=== PATIENT | male | born 1935 | race Caucasian/White ===

== ENCOUNTER → 2017-10-30 | Outpatient (CLI) | payer MEDICARE ==
--- NOTE | 2017-10-31 21:07 | US ---
EXAMINATION TYPE: US carotid duplex BILAT DATE OF EXAM: 10/30/2017 COMPARISON: Prior carotid ultrasound March 03, 2014 CLINICAL HISTORY: I65.9Occlusion/stenosis of unspe cified precerebral. HTN, pt has no complaints at this time EXAM MEASUREMENTS: RIGHT: Peak Systolic Velocity (PSV) cm/sec ----- Right CCA: 71.1 ----- Right ICA: 112.2 ----- Right ECA: 143.2 ICA/CCA ratio: 1.6 RIGHT: End Diastole cm/sec ----- Right CCA: 18.3 ----- Right ICA: 15.0 ----- Right ECA: 23.6 LEFT: Peak Systolic Velocity (PSV) cm/sec ----- Left CCA: 93.0 ----- Left ICA: 93.2 ----- Left ECA: 133.5 ICA/CCA ratio: 1.0 LEFT: End Diastole cm/sec ----- Left CCA: 17.2 ----- Left ICA: 29.3 ----- Left ECA: 17.1 VERTEBRALS (direction of flow): Right Vertebral: Antegrade Left Vertebral: Antegrade Rhythm: Normal Slightly elevated velocities bilateral ECA's, otherwise no significant stenosis seen Munoz scale images redemonstrate mild peripheral hyperechoic plaque at bilateral carotid bulbs. Veloci ty measurements and ratios in visualized portion of both internal carotid arteries is within normal l imits. IMPRESSION: No hemodynamic significant stenosis is seen in either internal carotid artery.
== END | disposition home or self-care (01) ==
LOC: RADUSWWP 15:18
PROVIDERS: ATTEND Internal Medicine Interventional Cardiology
DX: R42 Dizziness and giddiness (principal); I25.10 Atherosclerotic heart disease of native coronary artery without angina pectoris
CPT/HCPCS: 93880

== ENCOUNTER → 2018-05-14 | Outpatient (CLI) | payer MEDICARE ==
--- NOTE | 2018-05-14 16:54 | CT ---
EXAMINATION TYPE: CT brain wo con DATE OF EXAM: 05/14/2018 COMPARISON: None HISTORY: Left foot swelling and dizziness CT DLP: 1144.7 mGycm Automated exposure control for dose reduction was used. FINDINGS: There is cerebral cortical atrophy. There is no mass effect nor midline shift. There is no sign of in tracranial hemorrhage. The calvarium is intact. IMPRESSION: NEGATIVE CT SCAN OF THE BRAIN. CEREBRAL ATROPHY.
--- NOTE | 2018-05-14 17:26 | US ---
EXAMINATION TYPE: US venous doppler duplex LE LT DATE OF EXAM: 05/14/2018 5:02 PM COMPARISON: NONE CLINICAL HISTORY: R60.0 Edema / R13.10 Dyshagia. h/o left leg DVT 2 years ago, swelling now SIDE PERFORMED: Left TECHNIQUE: The lower extremity deep venous system is examined utilizing real time linear array sonog nicole with graded compression, doppler sonography and color-flow sonography. VESSELS IMAGED: External Iliac Vein (EIV) Common Femoral Vein Deep Femoral Vein Greater Saphenous Vein * Femoral Vein Popliteal Vein Small Saphenous Vein * Proximal Calf Veins (* superficial vessels) Left Leg: Appears negative for DVT IMPRESSION: No evidence of deep venous thrombosis in the left leg.
== END | disposition home or self-care (01) ==
LOC: RADCTMAIN 16:01
PROVIDERS: ATTEND Family Medicine
DX: G31.9 Degenerative disease of nervous system, unspecified (principal); R60.0 Localized edema
CPT/HCPCS: 70450

== ENCOUNTER 2018-07-26 07:56 | Day surgery (SDC) | payer MEDICARE ==
[2018-07-23 12:38] VITALS: BMI 25.7
[~2018-07-26 07:56] MED LIST: ALPRAZolam 0.25 MG TAB PO PRN; ALPRAZolam 0.5 MG TAB PO PRN; ASPIRIN 325 MG TAB PO ONE; ATORVASTATIN 80 MG TAB PO ONE; NITROGLYCERIN SL TABS 0.4 MG TAB SUBLINGUAL PRN; SODIUM CHLORIDE 0.9% 1,000 ML in EMPTY BAG 1 BAG IV ONE
[2018-07-26] MEDS ORDERED: SODIUM CHLORIDE 0.9% 1,000 ML IV ONE (08:30)
[2018-07-26 08:41] VITALS: RESP 16; TEMP 97.9
[2018-07-26 08:47] LABS: Glucose,Whole Blood 136 mg/dL (75-99)
[2018-07-26] MEDS ORDERED: LIDOCAINE 1% INJ 10MG/ML (20 ML MDV) ONE (09:02)
[2018-07-26] MEDS ORDERED: VERAPAMIL 2.5 MG/ML 2 ML AMP ONE (09:02)
[2018-07-26] MEDS ORDERED: HEPARIN SODIUM 1,000 UN/ML (10ML VL) ONE (09:02)
[2018-07-26] MEDS ORDERED: MIDAZOLAM 2 MG/2 ML VIAL ONE (09:02)
[2018-07-26] MEDS: MIDAZOLAM 2 MG/2 ML VIAL IVP ONE ×2 (10:40→10:52)
[2018-07-26] MEDS ORDERED: LIDOCAINE 1% INJ 10MG/ML (20 ML MDV) SQ ONE (10:40)
[2018-07-26] MEDS: VERAPAMIL SYRINGE (5 MG/10 ML) INTRAARTER ONE ×2 (10:42→11:01)
[2018-07-26] MEDS ORDERED: HEPARIN SODIUM 1,000 UN/ML (10ML VL) IV ONE (10:43)
[2018-07-26] MEDS ORDERED: IOPAMIDOL-370 50ML BTL INJ ONE (11:01)
[2018-07-26] MEDS ORDERED: IOPAMIDOL-370 125ML BTL INJ ONE (11:01)
[2018-07-26] MEDS ORDERED: RX INFO: IV CONTRAST WAS GIVEN 1 EACH MISC MISCELLANE PRN (11:17)
[2018-07-26] MEDS ORDERED: SODIUM CHLORIDE 0.9% 1,000 ML IV SCH (11:30)
--- NOTE | 2018-07-26 11:39 | LTR ---
DATE OF SERVICE: July 26, 2018. RE: Jl Mesa Dear Gilberto; Mr. Jl Mesa underwent a heart catheterization today and that revealed extremely calcified right and left coronary system with severe triple-vessel coronary artery disease. I am going to consult surgeon for the evaluation of coronary artery bypass grafting. I want to thank you for allowing me to participate in his care and please do not hesitate to call if you have any question or concern. Sincerely, MD ROSELIA Mason / GRACEN: [id number] /
--- NOTE | 2018-07-26 12:00 | CC ---
CARDIAC CATHETERIZATION REPORT DATE OF SERVICE: 07/26/2018 PERFORMING PHYSICIAN: Winston Gaona MD, [employer] T[employer]. PROCEDURE PERFORMED: 1. Selective right and left coronary angiogram. 2. Left heart catheterization. 3. Left ventriculography. INDICATION: This is a pleasant 83-year-old gentleman who sees Dr. Christopher as an outpatient with known history of hypertension and dyslipidemia who was experiencing recently atypical chest discomfort. He underwent a myocardial perfusion imaging stress test and that revealed lateral ischemia. Also, he did undergo an event monitor which showed 1 episode of sinus pause of 2 seconds. Giving all that, I did recommend proceeding with a heart catheterization to rule out any severe underlying CAD. APPROACH: Right radial artery. COMPLICATION: None. LEVEL OF SEDATION: Moderate with sedation length of 25 minutes. PROCEDURE DESCRIPTION: After obtaining an informed consent, the patient was brought to the cardiac lab engineer. The right radial artery was cannulated using micropuncture technique and a micropuncture wire passed easily, then I placed a 5-Ku[place]i sheath in the right radial artery. I gave the patient 2 mg of verapamil IA and 9000 units of heparin IV. Selective right and left coronary angiogram was performed using JR4 and JL3.5 catheters. Left heart catheterization and left ventriculography were performed using 5- [place]i pigtail catheter. The procedure was completed without any complication. SELECTIVE CORONARY ANGIOGRAM: 1. The right coronary artery is a large caliber vessel and it is a dominant vessel. The proximal RCA has mild disease only. The mid RCA has a lesion to be in the range of 70%. Was best seen on the AMAYA cranial view. The RCA distally appeared to have mild disease only and bifurcates into PDA and PLV branches. The PDA branch of the RCA has severe disease in the midportion, but the artery is a small caliber vessel. There. The PLV branch of the RCA has another lesion appeared to be in the range of 90% as well. The RCA overall is extremely calcified. 2. The left main is a large caliber vessel. The left main is angiographically normal. It bifurcates into the circumflex and left anterior descending artery. 3. The left circumflex is a medium caliber vessel. It is a nondominant vessel. The proximal circumflex has mild disease only and gives rise into a medium-sized OM branch which is subtotally occluded. The left circumflex continues after that as a medium caliber vessel in the AV groove. 4. The LAD, the LAD is an extremely calcified vessel. The proximal LAD has mild disease only. The mid LAD by the bifurcation of the diagonal branch appeared to have a lesion in the range of 70%. The LAD in the mid to distal portion has another long tubular lesion in the range of 70%. The very distal LAD just before the apex has another lesion appeared to be in the range of 90%. HEMODYNAMICS: The left ventricular end-diastolic pressure was 16 mmHg without significant gradient across the aortic valve. Left ventriculography was performed in the AMAYA projection and using a power injection. Left ventricular systolic function appeared to be mildly impaired with the EF between 45% to 50% CONCLUSION: 1. Extremely calcified right and left coronary systems. 2. Dominant right coronary artery. 3. Severe triple-vessel coronary artery disease. POSTPROCEDURE MANAGEMENT: 1. Given the extremely calcified vessels and the anatomy which including the triple- vessel, I did recommend proceeding with coronary artery bypass grafting. 2. I am going to consult surgeon to evaluate the patient for that. 3. Medical treatment and follow up with the patient. MMODL / IJN: [id number] /
--- NOTE | 2018-07-26 14:50 | US ---
EXAMINATION TYPE: US carotid duplex BILAT DATE OF EXAM: 07/26/2018 COMPARISON: US CLINICAL HISTORY: PreOp Cardiac Surgery. Pre-Op CABG EXAM MEASUREMENTS: RIGHT: Peak Systolic Velocity (PSV) cm/sec ----- Right CCA: 72.2 ----- Right ICA: 103.1 ----- Right ECA: 127.7 ICA/CCA ratio: 1.4 RIGHT: End Diastole cm/sec ----- Right CCA: 15.0 ----- Right ICA: 26.0 ----- Right ECA: 0.0 LEFT: Peak Systolic Velocity (PSV) cm/sec ----- Left CCA: 85.5 ----- Left ICA: 97.6 ----- Left ECA: 111.9 ICA/CCA ratio: 1.1 LEFT: End Diastole cm/sec ----- Left CCA: 12.8 ----- Left ICA: 28.2 ----- Left ECA: 8.4 VERTEBRALS (direction of flow): Right Vertebral: Antegrade Left Vertebral: Antegrade Rhythm: Normal No significant stenosis seen IMPRESSION: No hemodynamically significant stenosis appreciated. Criteria for Assigning % of Stenosis / Diameter reduction (Estimation based on the indirect measurements of the internal carotid artery velocities (ICA PSV). 1. Normal (no stenosis)=ICA PSV < 125 cm/s: ratio < 2.0: ICA EDV<40 cm/s. 2. Less than 50% stenosis=ICA PSV < 125 cm/s: ratio < 2.0: ICA EDV<40 cm/s. 3. 50 to 69% stenosis=ICA PSV of 125 to 230 cm/s: ration 2.0 ? 4.0: ICA EDV 40-100 cm/s. 4. Greater than 70% stenosis to near occlusion= ICA PSV > 230 cm/s: ratio > 4.0: ICA EDV > 100 cm/s. 5. Near occlusion= ICA PSV velocities may be low or undetectable: variable ratio and ICA EDV. 6. Total occlusion=unable to detect flow.
--- NOTE | 2018-07-26 15:02 | XR ---
EXAMINATION TYPE: XR chest 2V DATE OF EXAM: 07/26/2018 COMPARISON: NONE HISTORY: Shortness of breath TECHNIQUE: Frontal and lateral views of the chest are obtained. FINDINGS: Scattered senescent parenchymal changes noted. Hyperinflation compatible with COPD. No evidence for infiltrate. No evidence for atelectasis. Heart size is stable. Mediastinal structures are stable and grossly unremarkable. No evidence for hilar prominence. Degenerative changes dorsal spine. IMPRESSION: 1. No evidence for acute pulmonary disease.
[2018-07-26 16:22] LABS: Appearance,Urine Clear (Clear); Bilirubin,Urine Negative (Negative); Blood,Urine Negative (Negative); Color,Urine Light Yellow; Glucose,Urine (UA) Negative (Negative); Ketones,Urine Negative (Negative); Leukocyte Esterase,Urine Negative (Negative); Nitrite,Urine Negative (Negative); Protein,Urine Negative (Negative); Specific Gravity,Urine 1.014 (1.001-1.035); Urobilinogen,Urine <2.0 mg/dL (<2.0)
[2018-07-26 16:33] LABS: Basophils % (A) 0 %; Eosinophils # (A) 0.1 k/uL (0-0.7); Eosinophils % (A) 2 %; HCT 38.8 % (39.0-53.0); HGB 12.6 gm/dL (13.0-17.5); Lymphocytes # (A) 1.7 k/uL (1.0-4.8); Lymphocytes % (A) 32 %; MCH 30.4 pg (25.0-35.0); MCHC 32.6 g/dL (31.0-37.0); MCV 93.1 fL (80.0-100.0); Mean Platelet Volume 8.1; Monocytes # (A) 0.4 k/uL (0-1.0); Monocytes % (A) 8 %; Neutrophils # (A) 2.9 k/uL (1.3-7.7); Neutrophils % (A) 55 %; Platelet Count 156 k/uL (150-450); RBC 4.16 m/uL (4.30-5.90); RDW 13.8 % (11.5-15.5); WBC 5.2 k/uL (3.8-10.6)
[2018-07-26 16:37] LABS: INR 1.2 (<1.2); Prothrombin Time 11.8 sec (9.0-12.0)
[2018-07-26 16:43] LABS: ALT 51 U/L (21-72); AST 46 U/L (17-59); Albumin 3.7 g/dL (3.5-5.0); Alkaline Phosphatase 72 U/L (38-126); Anion Gap 8 mmol/L; Blood Urea Nitrogen 19 mg/dL (9-20); Calcium 9.3 mg/dL (8.4-10.2); Carbon Dioxide 27 mmol/L (22-30); Chloride 103 mmol/L (98-107); Cholesterol 102 mg/dL (<200); Glucose 130 mg/dL (74-99); HDL Cholesterol 52 mg/dL (40-60); LDL Cholesterol,Calculated 33 mg/dL (0-99); Magnesium 1.8 mg/dL (1.6-2.3); Potassium 4.1 mmol/L (3.5-5.1); Sodium 138 mmol/L (137-145); Total Bilirubin 0.6 mg/dL (0.2-1.3); Total Protein 6.6 g/dL (6.3-8.2); Triglycerides 84 mg/dL (<150)
[2018-07-26 16:55] VITALS: BP 115/68; PULSE 64
--- NOTE | 2018-07-26 18:44 | P.GSCN ---
History of Present Illness Consult date: 07/26/18 Reason for Consult: Positive stress test, symptomatic multivessel coronary artery disease. Requesting physician: Winston Gaona History of present illness: This is an 83-year-old gentleman who is followed by Dr. Gilberto Taylor on an outpatient basis. His past medical history significant for hypertension, diabetes mellitus type 2, hyperlipidemia, diverticulosis and a family history of early onset coronary artery disease with his father being diagnosed with a myocardial infarction at age 55. Recently, the patient has had complaints of swelling to his left foot, ankle and leg, and he has had complaints of pain to his bilateral calf areas when sleeping and occasional dizziness when ambulating. He denies any complaints of chest pain, nausea, vomiting, fever, chills, shortness of breath. Due to his complaints of dizziness he underwent a event monitor through his primary care office which showed normal sinus rhythm with 2 episodes of second degree type II AV block with heart rate in the 60s. For further workup the patient underwent a stress test which showed distal lateral wall ischemia. He was subsequently evaluated by Dr. Gaona from [facility] for further cardiology workup. Today after Obtaining consent he underwent an elective heart catheterization which demonstrated a 70% stenosis to his proximal left anterior descending coronary artery, and 80% stenosis to his mid left anterior descending coronary artery, a totally occluded circumflex coronary artery, and a 70% stenosis to his right coronary artery. Also during heart catheterization the left ventriculogram was completed which demonstrated a left ventricular systolic function to be mildly impaired with an ejection fraction between 45 and 50%. Due to the patient's abnormal stress test and cardiac catheterization results a consult was placed to Dr. jarred Mckeon from cardiothoracic surgery for recommendations on myocardial vascularization surgery. Review of Systems A 14 point review of systems was completed as negative except as mentioned in HPI. Past Medical History Past Medical History: Diabetes Mellitus, Deep Vein Thrombosis (DVT), Eye Disorder (History of cataracts), Hyperlipidemia, Hypertension Additional Past Medical History / Comment(s): HX OF POLYPS, diverticulosis. History of Any Multi-Drug Resistant Organisms: None Reported Past Surgical History: Appendectomy Additional Past Surgical History / Comment(s): COLONOSCOPY, JUAN DAVID CATARACT SX Past Anesthesia/Blood Transfusion Reactions: No Reported Reaction Past Psychological History: No Psychological Hx Reported Smoking Status: Former smoker (Quit over 30 years ago.) Past Alcohol Use History: None Reported Past Drug Use History: None Reported - Past Family History Mother Family Medical History: No Reported History Additional Family Medical History / Comment(s): The patient reports his mother from old age at age 96. Father Family Medical History: Myocardial Infarction (DE) Additional Family Medical History / Comment(s): His father was diagnosed with a myocardial infarction at age 55, he reports he had 6 subsequent myocardial infarctions and at age 82. Daughter(s) Family Medical History: Cancer Additional Family Medical History / Comment(s): His daughter just in May of 2018 from breast cancer. Medications and Allergies Home Medications Medication Instructions Recorded Confirmed Type Losartan/Hydrochlorothiazide 1 tab PO DAILY 05/22/16 07/26/18 History [Hyzaar 100-25 Tablet] Pioglitazone [Actos] 15 mg PO DAILY 05/22/16 07/26/18 History Aspirin [Adult Low Dose Aspirin EC] 81 mg PO DAILY 07/23/18 07/26/18 History Atorvastatin [Lipitor] 40 mg PO DAILY 07/23/18 07/26/18 History Cyanocobalamin (Vitamin B-12) 1,000 mcg PO DAILY 07/23/18 07/26/18 History [Vitamin B-12] Ferrous Sulfate [Feosol] 325 mg PO DAILY 07/23/18 07/26/18 History Thiamine [Vitamin B-1] 100 mg PO DAILY 07/23/18 07/26/18 History Allergies Allergy/AdvReac Type Severity Reaction Status Date / Time No Known Allergies Allergy Verified 07/23/18 12:33 Surgical - Exam Vital Signs Temp Pulse Resp BP Pulse Ox 97.9 F 71 16 141/65 95 07/26/18 08:35 07/26/18 08:35 07/26/18 08:35 07/26/18 08:35 07/26/18 08:35 - General well developed, well nourished, no distress, no pain, obese - ENT normal pinna, normal nares, normal mucosa, no hearing loss, no congestion - Neck Neck is supple, no lymphadenopathy. no masses, no bruits, trachea midline, no venous distension - Respiratory Lung sounds are essentially clear throughout. Respirations are symmetrical and nonlabored. Oxygen saturation are 95% on room air. - Cardiovascular Regular rhythm and rate. S1 and S2 present, negative for S3, gallop or murmur. +1 edema to his left ankle and foot. Bedside telemetry showing normal sinus rhythm heart rate 64. - Abdomen Abdomen is soft, nontender and nondistended. Active bowel sounds to all 4 abdominal quadrants. No guarding or rigidity. No organomegaly. - Genitourinary Deferred - Rectum Deferred - Integumentary no rash, no growths, no abnormal pigmentation - Neurologic normal coordination, normal sensation - Musculoskeletal normal gait, normal posture - Psychiatric oriented to time, oriented to person, oriented to place, speech is normal, memory intact Results - Labs 07/26/18 16:22 07/26/18 16:22 Abnormal Lab Results - Last 24 Hours (Table) 07/26/18 Range/Units 08:28 POC Glucose (mg/dL) 136 H (75-99) mg/dL - Imaging Comments: Heart catheterization results reviewed. Assessment and Plan (1) Hypertension Status: Acute Code(s): I10 - ESSENTIAL (PRIMARY) HYPERTENSION SNOMED Code(s) : 98237508 (2) Hyperlipidemia Status: Acute Code(s): E78.5 - HYPERLIPIDEMIA, UNSPECIFIED SNOMED Code(s): 45223224 (3) Diabetes mellitus type 2 in obese Status: Acute Code(s): E11.69 - TYPE 2 DIABETES MELLITUS WITH OTHER SPECIFIED COMPLICATION; E66.9 - OBESITY, UNSPECIFIED SNOMED Code(s): 18103081 (4) Coronary artery disease Status: Acute Code(s): I25.10 - ATHSCL HEART DISEASE OF [place] CORONARY ARTERY W/O ANG PCTRS SNOMED Code(s): 62016517 (5) Positive cardiac stress test Status: Acute Code(s): R94.39 - ABNORMAL RESULT OF OTHER CARDIOVASCULAR FUNCTION STUDY SNOMED Code(s): 405652285 (6) Family history of coronary artery disease in father Status: Acute Code(s): Z82.49 - FAMILY HX OF ISCHEM HEART DIS AND OTH DIS OF THE CIRC SYS SNOMED Code(s): 837983172 Plan: The patient was seen and examined. His chart and diagnostics were reviewed. Skin is was discussed with Dr. Mckeon. Dr. Mckeon has seen and examined the patient. Preoperative testing and preoperative teaching initiated. A 5 m walk test has been completed time 1:4.92 seconds,Time 2: 4.53 seconds, time 3:3.96 seconds. Continue to optimize with medical therapy, continue aspirin, statin. Medical management per primary care service. Cardiology management per Dr. Gaona 's recommendations. Dr. Mckeon discussed at length with the patient and his family present at his bedside regarding his diffuse coronary artery disease. Due to the patient's diffuse coronary artery disease it was decided between Dr. Mckeon and Dr. Gaona that the patient would most likely more benefit from a PCI procedure. The patient will follow-up with Dr. Gaona on an outpatient basis. Thank you Dr. Gaona for this consult and we look forward to working with you in the care of your patient. Time with Patient: Greater than 30
[2018-07-27 05:15] LABS: Hemoglobin A1C 6.5 % (4.0-6.0)
--- NOTE | 2018-07-27 10:56 | ECHOF ---
Referral Reason:Assess LV function, pre op Cardiac surgery MEASUREMENTS -------- HEIGHT: 182.9 cm WEIGHT: 89.8 kg BP: RVIDd: 3.1 cm (< 3.3) IVSd: 1.2 cm (0.6 - 1.1) LVIDd: 5.5 cm (3.9 - 5.3) LVPWd: 1.1 cm (0.6 - 1.1) IVSs: 1.4 cm LVIDs: 4.0 cm LVPWs: 1.4 cm LA Diam: 3.8 cm (2.7 - 3.8) LAESV Index (A-L): 31.65 ml/m Ao Diam: 3.8 cm (2.0 - 3.7) AV Cusp: 1.5 cm (1.5 - 2.6) MV EXCURSION: 11.800 mm (> 18.000) MV EF SLOPE: 99 mm/s (70 - 150) EPSS: 0.5 cm MV E Jamari: 1.00 m/s MV DecT: 217 ms MV A Jamari: 0.66 m/s MV E/A Ratio: 1.50 AV maxP.28 mmHg AV meanP.70 mmHg AR PHT: 1197 ms RAP: 5.00 mmHg RVSP: 29.68 mmHg FINDINGS -------- Sinus rhythm. This was a technically good study. The left ventricular size is normal. There is borderline concentric left ventricular hypertrophy. Overall left ventricular systolic function is normal with, an EF between 55 - 60 %. The right ventricle is normal in size. LA is midly dilated 29-33ml/m2. The right atrium is normal in size. There is mild aortic valve sclerosis. Trace to mild aortic regurgitation. Peak/mean gradient acro ss the Aortic Valve is 11.28mmHg / 5.70mmHg. There is trace mitral regurgitation. Mild tricuspid regurgitation present. Right ventricular systolic pressure is normal at < 35 mmHg. There is no pulmonic regurgitation present. The aortic root is dilated measuring 3.8cm. Normal inferior vena cava with normal inspiratory collapse consistent with estimated right atrial pre ssure of 5 mmHg. CONCLUSIONS -------- 1. Sinus rhythm. 2. This was a technically good study. 3. The left ventricular size is normal. 4. There is borderline concentric left ventricular hypertrophy. 5. Overall left ventricular systolic function is normal with, an EF between 55 - 60 %. 6. The right ventricle is normal in size. 7. LA is midly dilated 29-33ml/m2. 8. The right atrium is normal in size. 9. There is mild aortic valve sclerosis. 10. Trace to mild aortic regurgitation. 11. Peak/mean gradient across the Aortic Valve is 11.28mmHg / 5.70mmHg. 12. There is trace mitral regurgitation. 13. Mild tricuspid regurgitation present. 14. Right ventricular systolic pressure is normal at < 35 mmHg. 15. There is no pulmonic regurgitation present. 16. The aortic root is dilated measuring 3.8cm. 17. Normal inferior vena cava with normal inspiratory collapse consistent with estimated right atrial pressure of 5 mmHg. [employer] TECHNICIAN: Mignon Bosch RDCS
[2018-07-27 17:09] LABS: Hepatitis A Antibody IgM Non-Reactive (Non-Reactive); Hepatitis B Core IgM Non-Reactive (Non-Reactive)
--- NOTE | 2018-08-04 15:02 | P.ARTDOP ---
Arterial Doppler LOWER EXTREMITY ARTERIAL DOPPLER: DATE OF SERVICE: 07/26/2018 Reason for study: Preop CABG. Doppler waveforms: Multiphasic bilaterally throughout. Pulse volume recording: []. Pressure gradients: None. Ankle-brachial indices: Greater than 1 bilaterally. Toe pressures: [] on the right, [] on the left Impression: Normal study.
--- NOTE | 2018-08-04 15:04 | P.VSCSTY ---
Greater Saphenous Vein Mapping This is bilateral lower extremity greater saphenous vein mapping. Date of service 07/26/2018 Vein quality and ultrasound appearance no intraluminal thrombus or wall changes are seen. Vein size groin right 5.8 x 5.7 groin left 7.0 x 7.8 High thigh right 2.3 x 2.3 high thigh left 4.1 x 4.2 Mid thigh right 2.4 x 2.3 mid thigh left 3.5 x 4.1 Above-knee right 2.6 x 2.8 above- knee left 4.3 x 4.8 Below knee right 2.4 x 3.0 below-knee left 3.8 x 4.0 Mid calf right 2.8 x 3.2 mid calf left 2.5 x 2.1 Ankle right 3.2 x 4.1 ankle left 3.7 x 4.1 Impression usable bilateral greater saphenous vein.
== END 2018-07-26 18:37 | disposition home or self-care (01) ==
LOC: CATHCVL 07:56
PROVIDERS: ATTEND Internal Medicine Interventional Cardiology
DX: I25.110 Atherosclerotic heart disease of native coronary artery with unstable angina pectoris (principal); I25.84 Coronary atherosclerosis due to calcified coronary lesion; I25.82 Chronic total occlusion of coronary artery; I10 Essential (primary) hypertension; I08.3 Combined rheumatic disorders of mitral, aortic and tricuspid valves; Z01.810 Encounter for preprocedural cardiovascular examination; Z87.891 Personal history of nicotine dependence; E78.5 Hyperlipidemia, unspecified; E11.9 Type 2 diabetes mellitus without complications; Z86.718 Personal history of other venous thrombosis and embolism; Z82.49 Family history of ischemic heart disease and other diseases of the circulatory system; Z79.84 Long term (current) use of oral hypoglycemic drugs; Z79.82 Long term (current) use of aspirin; Z79.899 Other long term (current) drug therapy
CPT/HCPCS: 94150; 93306; 93458; 80061; 80053; 80074; 84443; 83735; 85025; 85610; 85730; 81003; 87086; 83036; 71046; 93970; 93922; 93880; C1769; C1894; J2250; J2001; J1644; Q9967 ×2

== ENCOUNTER → 2018-08-28 | Outpatient (CLI) | payer MEDICARE | END | disposition home or self-care (01) | LOC: RADXRMAIN 15:16 | PROVIDERS: ATTEND Internal Medicine Interventional Cardiology | DX: Z53.9 Procedure and treatment not carried out, unspecified reason (principal) | CPT/HCPCS: 80051; 82565; 84520; 85027 ==

== ENCOUNTER 2018-09-08 10:17 | Day surgery (SDC) | payer MEDICARE ==
[2018-08-28 23:08] LABS: HCT 41.9 % (39.0-53.0); HGB 13.9 gm/dL (13.0-17.5); MCH 31.3 pg (25.0-35.0); MCHC 33.2 g/dL (31.0-37.0); MCV 94.5 fL (80.0-100.0); Mean Platelet Volume 8.7; Platelet Count 184 k/uL (150-450); RBC 4.44 m/uL (4.30-5.90); RDW 14.1 % (11.5-15.5); WBC 5.2 k/uL (3.8-10.6)
[2018-08-28 23:20] LABS: Anion Gap 10 mmol/L; Blood Urea Nitrogen 23 mg/dL (9-20); Carbon Dioxide 27 mmol/L (22-30); Chloride 105 mmol/L (98-107); Sodium 142 mmol/L (137-145)
[~2018-09-08 10:17] MED LIST changes: -ASPIRIN 325 MG TAB PO ONE; +ASPIRIN 325 MG TAB PO STA; -ATORVASTATIN 80 MG TAB PO ONE; +ATORVASTATIN 80 MG TAB PO STA
[2018-09-08 10:54] LABS: Basophils % (A) 1 %; Eosinophils # (A) 0.2 k/uL (0-0.7); Eosinophils % (A) 4 %; HCT 42.3 % (39.0-53.0); HGB 13.6 gm/dL (13.0-17.5); Lymphocytes # (A) 1.7 k/uL (1.0-4.8); Lymphocytes % (A) 35 %; MCH 29.9 pg (25.0-35.0); MCHC 32.2 g/dL (31.0-37.0); MCV 92.6 fL (80.0-100.0); Mean Platelet Volume 7.2; Monocytes # (A) 0.3 k/uL (0-1.0); Monocytes % (A) 6 %; Neutrophils # (A) 2.5 k/uL (1.3-7.7); Neutrophils % (A) 51 %; Platelet Count 195 k/uL (150-450); RBC 4.57 m/uL (4.30-5.90)
[2018-09-08 11:03] LABS: Glucose,Whole Blood 133 mg/dL (75-99)
[2018-09-08] MEDS ORDERED: LIDOCAINE 1% INJ 10MG/ML (20 ML MDV) ONE (11:15)
[2018-09-08 11:16] LABS: Anion Gap 8 mmol/L; Blood Urea Nitrogen 24 mg/dL (9-20); Calcium 9.7 mg/dL (8.4-10.2); Carbon Dioxide 26 mmol/L (22-30); Chloride 106 mmol/L (98-107); Glucose 139 mg/dL (74-99); Potassium 3.8 mmol/L (3.5-5.1); Sodium 140 mmol/L (137-145)
[2018-09-08] MEDS ORDERED: MIDAZOLAM 2 MG/2 ML VIAL IVP ONE (11:19)
[2018-09-08] MEDS ORDERED: LIDOCAINE 1% (PF) 10MG/ML VIAL SQ ONE (11:28)
[2018-09-08] MEDS ORDERED: BIVALIRUDIN BOLUS 250 MG/50 ML IV ONE (11:30)
[2018-09-08] MEDS ORDERED: BIVALIRUDIN 250 MG in SODIUM CHLORIDE 0.9% 50 ML IV ONE (11:32)
[2018-09-08] MEDS ORDERED: TICAGRELOR 90 MG TAB ONE (11:54)
[2018-09-08] MEDS ORDERED: TICAGRELOR 90 MG TAB PO ONE (11:57)
[2018-09-08] MEDS ORDERED: niCARdipine Syringe (1,000 mcg/10 mL) INTRACORON ONE (12:00)
[2018-09-08] MEDS ORDERED: NITROGLYCERIN 1000MCG/10ML SYRINGE INTRACORON ONE (12:00)
[2018-09-08] MEDS ORDERED: IOPAMIDOL-370 125ML BTL INJ ONE (12:06)
[2018-09-08] MEDS ORDERED: ZOLPIDEM 5 MG TAB PO PRN (12:27)
[2018-09-08] MEDS ORDERED: NITROGLYCERIN SL TABS 0.4 MG TAB SUBLINGUAL PRN (12:27)
[2018-09-08] MEDS ORDERED: MAG HYDROX/AL HYDROX/SIMETH 30 ML CUP PO PRN (12:27)
[2018-09-08] MEDS ORDERED: ATROPINE SULFATE 0.1 MG/ML 10ML SYRINGE IV PRN (12:27)
[2018-09-08] MEDS ORDERED: RX INFO: IV CONTRAST WAS GIVEN 1 EACH MISC MISCELLANE PRN (12:27)
[2018-09-08] MEDS ORDERED: SODIUM CHLORIDE 0.9% 1,000 ML IV SCH (12:30)
--- NOTE | 2018-09-08 12:48 | LTR ---
DATE OF SERVICE: 09/08/2018 RE: Jl Mesa Dear Dr. Taylor; Mr. Jl Mesa underwent successful stenting of the right coronary artery with good angiographic results and without any complication. I want to thank you for allowing me to participate in his care and please do not hesitate to call if you have any question or concern. Sincerely, MD ROSELIA Mason / YASMIN: [phone] /
--- NOTE | 2018-09-08 15:21 | PTCA ---
PERCUTANEOUSTRANS CORORONARY ANGIOGRAPHY DATE OF SERVICE: 09/08/2018 PERFORMING PHYSICIAN: MD Jimenez, Bloom Conveyor Operator. PROCEDURE PERFORMED: 1. Placement of transvenous temporary pacemaker from the right groin approach. 2. An atherectomy of the right coronary artery using the orbital atherectomy device from [employer]. 3. Successful stenting of the mid RCA using 4.0 x 18 mm Xience drug-eluting stent with good angiographic results and reduction of stenosis from 70% to 0. INDICATION: This is a pleasant 83-year-old gentleman who was diagnosed recently with severe triple- vessel coronary artery disease. He was referred for coronary artery . Because of that, he was brought today to undergo a PCI of the right coronary artery and the decision was made towards treating the left coronary system medically. APPROACH: Right common femoral artery. COMPLICATION: None. LEVEL OF SEDATION: Moderate with sedation length of 46 minutes. PROCEDURE DESCRIPTION: After obtaining an informed consent, the patient was brought to the cardiac laboratory manager. The right common femoral artery was cannulated using micropuncture technique, the micropuncture wire passed easily, then I placed a 6-Irish sheath 11 cm in the right common femoral artery. After that, I did cannulate the right common femoral vein using also micropuncture technique and a micropuncture wire passed easily, then I placed a 6- Irish sheath in the right common femoral vein as well. At that stage, anticoagulation was initiated using Angiomax was bolus and drip. Subsequently, I did place transvenous temporary pacemaker in the apex of the right ventricle under fluoroscopy guidance with the backup heart rate of 60 beats per minute. After that, I did engage the RCA using a JR4 guiding catheter. I did wire the right coronary artery using a whisper wire and the wire was positioned in the PDA branch of the RCA. After that, I did exchange my Whisper wire into a ViperWire preparing for additional atherectomy using the [employer] catheter. After that, I did do atherectomy of the mid right coronary artery using the using the orbital atherectomy device from [employer], I did two low speed runs. After that I did balloon angioplasty using 3.5 x 12 mm balloon before I deployed 4.0 x 18 mm Xience drug-eluting stent where the stent was positioned under fluoroscopy guidance and deployed under 16 atmospheres for 20 seconds. The following angiogram showed good angiographic results with reduction of stenosis from 70% to 0%. The procedure was completed without any complication. POSTPROCEDURE MANAGEMENT: 1. Dual anti-platelet therapy. 2. Risk factor modifications. 3. Follow up with the patient. ROSELIA / GRACEN: [id number] /
[2018-09-08 17:37] LABS: Glucose,Whole Blood 146 mg/dL (75-99)
[2018-09-08 18:28] VITALS: BMI 26.4
[2018-09-08 20:51] LABS: Glucose,Whole Blood 122 mg/dL (75-99)
[2018-09-09 05:44] VITALS: PULSE 67
[2018-09-09 06:30] LABS: Glucose,Whole Blood 129 mg/dL (75-99)
[2018-09-09 07:39] LABS: Basophils % (A) 0 %; Eosinophils # (A) 0.1 k/uL (0-0.7); Eosinophils % (A) 3 %; HCT 37.7 % (39.0-53.0); HGB 12.8 gm/dL (13.0-17.5); Lymphocytes # (A) 1.3 k/uL (1.0-4.8); Lymphocytes % (A) 24 %; MCH 31.4 pg (25.0-35.0); MCV 92.3 fL (80.0-100.0); Mean Platelet Volume 7.6; Monocytes # (A) 0.4 k/uL (0-1.0); Monocytes % (A) 7 %; Neutrophils # (A) 3.4 k/uL (1.3-7.7); Neutrophils % (A) 64 %; Platelet Count 157 k/uL (150-450); RBC 4.08 m/uL (4.30-5.90); RDW 14.1 % (11.5-15.5); WBC 5.2 k/uL (3.8-10.6)
[2018-09-09 07:52] LABS: Anion Gap 8 mmol/L; Blood Urea Nitrogen 19 mg/dL (9-20); Calcium 8.8 mg/dL (8.4-10.2); Carbon Dioxide 26 mmol/L (22-30); Chloride 106 mmol/L (98-107); Glucose 128 mg/dL (74-99); Potassium 4.1 mmol/L (3.5-5.1); Sodium 140 mmol/L (137-145)
--- NOTE | 2018-09-09 08:57 | DS ---
DISCHARGE SUMMARY ADMISSION DATE: September 08, 2018 DISCHARGE DATE: September 09, 2018 BRIEF HISTORY: This is a pleasant 83-year-old gentleman who was diagnosed recently with severe triple- vessel coronary artery disease and referred to undergo coronary artery bypass grafting and he was turned down by the surgeon to be higher risk for the procedure. Because of that, he was brought to the hospital yesterday and underwent successful atherectomy and balloon angioplasty and stenting of the mid right coronary artery with good angiographic results by the end and without any complication using a drug-eluting stent. The procedure was performed from the right groin which is soft, nontender and without any bruises. The patient is going to be discharged home on dual antiplatelet therapy as well as statin and I will follow up with the patient in a week in the office. MMANTONIAL / GRACEN: [id number] /
[2018-09-09] MEDS ORDERED: LOSARTAN-HCTZ 50-12.5 MG 1 EACH TAB PO SCH (09:00)
[2018-09-09] MEDS ORDERED: ATORVASTATIN 40 MG TAB PO SCH (09:00)
[2018-09-09] MEDS ORDERED: PIOGLITAZONE 15 MG TAB PO SCH (09:00)
[2018-09-09] MEDS ORDERED: ASPIRIN 81 MG PO SCH (09:00)
[2018-09-09] MEDS ORDERED: TICAGRELOR 90 MG TAB PO SCH (09:00)
[2018-09-09] MEDS ORDERED: FERROUS SULFATE 325 MG TAB PO SCH (09:00)
[2018-09-09] MEDS ORDERED: THIAMINE 100 MG TAB PO SCH (09:00)
[2018-09-09] MEDS ORDERED: CYANOCOBALAMIN 500 MCG TAB PO SCH (09:00)
[2018-09-09 10:01] VITALS: BP 124/60; RESP 16; TEMP 97.7
== END 2018-09-09 11:38 | disposition home or self-care (01) ==
LOC: CATHCVL 10:17 → 3SCARD 12:00 → CATHCVL 09-09 11:38
PROVIDERS: ATTEND Internal Medicine Interventional Cardiology
DX: I25.10 Atherosclerotic heart disease of native coronary artery without angina pectoris (principal); I10 Essential (primary) hypertension; E78.5 Hyperlipidemia, unspecified; E11.9 Type 2 diabetes mellitus without complications; Z79.82 Long term (current) use of aspirin; Z79.899 Other long term (current) drug therapy; Z63.4 Disappearance and death of family member; Z82.49 Family history of ischemic heart disease and other diseases of the circulatory system; Z72.0 Tobacco use; Z86.718 Personal history of other venous thrombosis and embolism
CPT/HCPCS: 80051; 80048 ×2; 82565; 84520; 85025 ×2; 85027; C9602; C1769 ×5; C1887 ×2; C1725; C1894; C1714; C1760; C1874; J2250; J0583; J2001; Q9967

== ENCOUNTER → 2018-12-09 | Day surgery (SDC) | payer MEDICARE ==
[2018-12-08 12:40] VITALS: BMI 27.1
[~2018-12-09] MED LIST changes: -ALPRAZolam 0.25 MG TAB PO PRN; -ALPRAZolam 0.5 MG TAB PO PRN; -ASPIRIN 325 MG TAB PO STA; -ATORVASTATIN 80 MG TAB PO STA; -NITROGLYCERIN SL TABS 0.4 MG TAB SUBLINGUAL PRN; +SODIUM CHLORIDE 0.9% 1,000 ML IV SCH; -SODIUM CHLORIDE 0.9% 1,000 ML in EMPTY BAG 1 BAG IV ONE
[2018-12-09 11:12] LABS: Glucose,Whole Blood 118 mg/dL (75-99)
[2018-12-09 11:15] VITALS: BP 139/63; PULSE 74; RESP 18; TEMP 98.2
--- NOTE | 2018-12-20 09:26 | P.PCN ---
Date of Procedure: 12/09/18 Preoperative Diagnosis: Diagnosis Near-syncope/dizziness, recurrent Twelve-lead ECG shows sinus rhythm prolonged UT interval of 276 ms narrow QRS 0.[address] depression inferolaterally Tilt table test per protocol Baseline blood pressure 129/71 mmHg Baseline heart rate 66 beats a minute, Patient was tilted upright are -70 per protocol No significant change in heart rate blood pressure No symptoms noted Impression Abnormal twelve-lead ECG with a prolonged UT interval and 0.[address] depression that could be consistent with digoxin effect Normal heart and blood pressure response to upright tilting
== END | disposition home or self-care (01) ==
LOC: CATHEP 10:37
PROVIDERS: ATTEND Internal Medicine Clinical Cardiac Electrophysiology
DX: R55 Syncope and collapse (principal); I25.10 Atherosclerotic heart disease of native coronary artery without angina pectoris; E78.5 Hyperlipidemia, unspecified; I10 Essential (primary) hypertension; E11.9 Type 2 diabetes mellitus without complications; Z79.02 Long term (current) use of antithrombotics/antiplatelets; Z79.899 Other long term (current) drug therapy; Z79.82 Long term (current) use of aspirin; Z95.5 Presence of coronary angioplasty implant and graft; Z79.84 Long term (current) use of oral hypoglycemic drugs; Z82.49 Family history of ischemic heart disease and other diseases of the circulatory system; Z72.0 Tobacco use; Z86.718 Personal history of other venous thrombosis and embolism
CPT/HCPCS: 93660

== ENCOUNTER → 2024-05-03 | Outpatient (CLI) | payer MEDICARE ==
[2024-05-03 18:22] LABS: Basophils # (A) 0.03 X 10*3/uL (0.00-0.10); Basophils % (A) 0.6 %; Eosinophils # (A) 0.11 X 10*3/uL (0.04-0.35); Eosinophils % (A) 2.1 %; HCT 44.1 % (39.6-50.0); HGB 14.7 g/dL (13.0-17.0); Lymphocytes % (A) 38.7 %; MCH 29.9 pg (27.0-32.0); MCHC 33.3 g/dL (32.0-37.0); MCV 89.8 FL (80.0-97.0); Mean Platelet Volume 11.1 FL (9.5-12.2); Monocytes # (A) 0.44 X 10*3/uL (0.20-1.00); Monocytes % (A) 8.5 %; NRBC Per 100 WBC 0 X 10*3/uL (0.00-0.01); Neutrophils # (A) 2.55 X 10*3/uL (1.80-7.70); Neutrophils % (A) 49.3 %; Platelet Count 182 X 10*3/uL (140-440); RBC 4.91 X 10*6/uL (4.40-5.60); RDW 13.2 % (11.5-14.5); WBC 5.17 X 10*3/uL (4.50-10.00)
[2024-05-03 19:28] LABS: ALT 22 U/L (10-49); AST 20 U/L (14-35); Albumin 4.4 g/dL (3.8-4.9); Albumin/Globulin Ratio 1.91 Ratio (1.60-3.17); Alkaline Phosphatase 102 U/L (41-126); BUN/Creat Ratio 14.43 Ratio (12.00-20.00); Blood Urea Nitrogen 10.1 mg/dL (9.0-27.0); Calcium 9.3 mg/dL (8.7-10.3); Carbon Dioxide 24.8 mmol/L (21.6-31.8); Chloride 104 mmol/L (96-109); Chol/HDL Ratio 4.82 Ratio; Globulin 2.3 g/dL (1.6-3.3); Glucose 174 mg/dL (70-110); LDL Cholesterol,Calculated 131.8 mg/dL (0.0-131.0); Potassium 4.2 mmol/L (3.5-5.5); Sodium 141 mmol/L (135-145); Total Bilirubin 0.8 mg/dL (0.3-1.2); Total Protein 6.7 g/dL (6.2-8.2); VLDL Calculation 19.58 mg/dL (5.00-40.00)
== END | disposition home or self-care (01) ==
LOC: LABWHC1 13:00
PROVIDERS: ATTEND Family Medicine
DX: I10 Essential (primary) hypertension (principal)
CPT/HCPCS: 36415; 80053; 80061; 85025

== ENCOUNTER → 2024-05-06 | Outpatient (CLI) | payer MEDICARE | END | disposition home or self-care (01) | LOC: LABWHC1 13:14 | PROVIDERS: ATTEND Nurse Practitioner | DX: E11.649 Type 2 diabetes mellitus with hypoglycemia without coma (principal) | CPT/HCPCS: 36415; 83036 ==

== ENCOUNTER → 2024-08-19 | Outpatient (CLI) | payer MEDICARE ==
[2024-08-19 18:20] LABS: Carbon Dioxide 23.8 mmol/L (21.6-31.8); Chloride 107 mmol/L (96-109); Potassium 4.3 mmol/L (3.5-5.5); Sodium 142 mmol/L (135-145)
[2024-08-19 18:32] LABS: Basophils # (A) 0.03 X 10*3/uL (0.00-0.10); Basophils % (A) 0.5 %; Eosinophils # (A) 0.17 X 10*3/uL (0.04-0.35); Eosinophils % (A) 2.9 %; HCT 45.6 % (39.6-50.0); HGB 14.9 g/dL (13.0-17.0); Lymphocytes # (A) 1.91 X 10*3/uL (0.90-5.00); MCH 30.7 pg (27.0-32.0); MCHC 32.7 g/dL (32.0-37.0); Mean Platelet Volume 11.3 FL (9.5-12.2); Monocytes # (A) 0.43 X 10*3/uL (0.20-1.00); Monocytes % (A) 7.4 %; NRBC Per 100 WBC 0 X 10*3/uL (0.00-0.01); Neutrophils # (A) 3.21 X 10*3/uL (1.80-7.70); Neutrophils % (A) 55.7 %; Platelet Count 184 X 10*3/uL (140-440); RBC 4.85 X 10*6/uL (4.40-5.60); RDW 14.2 % (11.5-14.5); WBC 5.78 X 10*3/uL (4.50-10.00)
== END | disposition home or self-care (01) ==
LOC: LABWHC1 14:30
PROVIDERS: ATTEND Internal Medicine Interventional Cardiology
DX: Z01.812 Encounter for preprocedural laboratory examination (principal); I25.10 Atherosclerotic heart disease of native coronary artery without angina pectoris
CPT/HCPCS: 36415; 80051; 82565; 84520; 85025

== ENCOUNTER 2024-08-24 08:05 | Day surgery (SDC) | payer MEDICARE ==
[~2024-08-24 08:05] MED LIST changes: +ALPRAZolam 0.25 MG TAB PO PRN; +ALPRAZolam 0.5 MG TAB PO PRN; +NITROGLYCERIN SL TABS 0.4 MG TAB SUBLINGUAL PRN; -SODIUM CHLORIDE 0.9% 1,000 ML IV SCH
[2024-08-24 08:43] LABS: Glucose,Whole Blood 126 mg/dL (70-110)
[2024-08-24] MEDS: SODIUM CHLORIDE 0.9% 1,000 ML IV ONE (12:06)
[2024-08-24] MEDS: MIDAZOLAM 2 MG/2 ML VIAL IVP ONE (12:18)
[2024-08-24] MEDS: LIDOCAINE 1% INJ 10MG/ML (20 ML MDV) SQ ONE (12:19)
[2024-08-24] MEDS: VERAPAMIL SYRINGE (5 MG/10 ML) INTRAARTER ONE (12:20)
[2024-08-24] MEDS: HEPARIN SODIUM 1,000 UN/ML (10ML VL) IV ONE (12:26)
[2024-08-24] MEDS: TICAGRELOR 90 MG TAB PO ONE (12:43)
[2024-08-24] MEDS: IOPAMIDOL-370 100ML BTL INJ ONE (13:10)
[2024-08-24] MEDS ORDERED: RX INFO: IV CONTRAST WAS GIVEN 1 EACH MISC MISCELLANE PRN (13:22)
[2024-08-24] MEDS ORDERED: ATROPINE SULFATE 0.1 MG/ML 10ML SYRINGE IV PRN (13:22)
[2024-08-24] MEDS ORDERED: ZOLPIDEM 5 MG TAB PO PRN (13:22)
[2024-08-24] MEDS ORDERED: MAG HYDROX/AL HYDROX/SIMETH 30 ML CUP PO PRN (13:22)
[2024-08-24] MEDS ORDERED: NITROGLYCERIN SL TABS 0.4 MG TAB SUBLINGUAL PRN (13:22)
--- NOTE | 2024-08-24 13:26 | P.PCN ---
Date of Procedure: 08/24/24 Operative Findings: CARDIAC CATHETERIZATION AND PERCUTANEOUS CORONARY INTERVENTION PERFORMING PHYSICIAN: Winston Gaona MD, [facility] PROCEDURE PERFORMED: 1. Selective right and left coronary angiogram 2. Successful stenting of mid LAD using 3.0 x 18 mm Xience HECTOR with an excellent angiographic results with adjunctive use of IVUS and lithotripsy balloon 3. Ultrasound-guided access of the right radial artery INDICATION: Abnormal myocardial perfusion imaging stress test which showed high risk features COMPLICATION: None APPROACH: Right radial art LEVEL OF SEDATION: Moderate with the sedation time off 47 minutes PROCEDURE DESCRIPTION: After obtaining informed consent the patient was brought to the cardiac [employer] Arc with right radial artery was cannulated using micropuncture technique under ultrasound guidance a micropuncture wire passed easily then I placed a 6 Citizen Of [place] 11 cm sheath at the right radial artery and give the patient 2 mg of verapamil intra-arterial and 5000's of heparin intravenous. Selective right and left coronary angiogram performed using JR4 and JL 4 catheter. After that I decided to intervene on the LAD with anticoagulation was initiated using heparin with continuous ACT monitoring. Subsequently I did engage the left main using JL 3.5 guiding catheter with I did wire the LAD from the get go using 2 wires with run- through wire and whisper wire for better anchoring. Intravascular ultrasound was performed and showed a diameter around 3 mm with heavily calcified vessel. I did initially predilatation using 3 mm noncompliant balloon but the artery would not give up and there was a napkin ring. At that point I decided to go with 2.5 mm high-pressure balloon and in spite of that I was unable to open the artery but I was able to using 3 mm lithotripsy balloon and subsequently I placed 3.0 x 18 mm Xience HECTOR where the stent was positioned under fluoroscopy guidance and deployed under fluoroscopy guidance. 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 I did perform PCI of the LAD POSTPROCEDURE MANAGEMENT: 1. Dual antiplatelet therapy using aspirin and Brilinta for at least 6 month 2. Aggressive cholesterol control 3. Follow-up with the patient
[2024-08-24 16:25] LABS: Glucose,Whole Blood 168 mg/dL (70-110)
[2024-08-24] MEDS: SODIUM CHLORIDE 0.9% 1,000 ML in EMPTY BAG 1 BAG IV SCH ×2 (17:09)
[2024-08-24] MEDS: EMPTY BAG 1 BAG with SODIUM CHLORIDE 0.9% 1,000 ML IV ONE (17:09)
[2024-08-24] MEDS: ASPIRIN 325 MG TAB PO ONE (17:10)
[2024-08-24 19:37] LABS: Glucose,Whole Blood 172 mg/dL (70-110)
[2024-08-24] MEDS: TICAGRELOR 90 MG TAB PO SCH (20:35)
[2024-08-25] MEDS: carvediloL 12.5 MG TAB PO SCH (01:00)
[2024-08-25 06:01] LABS: Glucose,Whole Blood 135 mg/dL (70-110)
[2024-08-25 07:33] LABS: Basophils % (A) 0 %; Eosinophils # (A) 0.2 k/uL (0-0.7); Eosinophils % (A) 2 %; HCT 44.3 % (39.0-53.0); HGB 14.5 gm/dL (13.0-17.5); Lymphocytes # (A) 1.5 k/uL (1.0-4.8); Lymphocytes % (A) 20 %; MCH 30.3 pg (25.0-35.0); MCHC 32.8 g/dL (31.0-37.0); MCV 92.4 fL (80.0-100.0); Mean Platelet Volume 8.3; Monocytes # (A) 0.5 k/uL (0-1.0); Monocytes % (A) 7 %; Neutrophils # (A) 5.1 k/uL (1.3-7.7); Neutrophils % (A) 69 %; Platelet Count 171 k/uL (150-450); RBC 4.79 m/uL (4.30-5.90); RDW 14.3 % (11.5-15.5); WBC 7.4 k/uL (3.8-10.6)
[2024-08-25 07:55] LABS: African American GFR (CKD) >90 (>60 ml/min/1.73 sqM); Anion Gap 7 mmol/L; Blood Urea Nitrogen 14 mg/dL (9-20); Calcium 9.3 mg/dL (8.4-10.2); Carbon Dioxide 27 mmol/L (22-30); Chloride 104 mmol/L (98-107); Glucose 142 mg/dL (74-99); Non-African American GFR(CKD) 86 (>60 ml/min/1.73 sqM); Potassium 4.1 mmol/L (3.5-5.1); Sodium 138 mmol/L (137-145)
[2024-08-25] MEDS: ATORVASTATIN 40 MG TAB PO SCH (09:19)
[2024-08-25] MEDS: ASPIRIN 81 MG PO SCH (09:19)
[2024-08-25] MEDS: DAPAGLIFLOZIN PROPANEDIOL 5 MG TABLET PO SCH (09:19)
[2024-08-25 10:29] VITALS: BP 120/71; PULSE 73; RESP 18; TEMP 97.1
--- NOTE | 2024-08-26 12:47 | P.DS ---
Providers Attending physician: Winston Gaona Consults: 08/24/24 13:22 Consult Physician Routine Consulting Provider: [facility] Consult Reason/Comments: Post Interventional patient Do you want consulting provider notified?: Already Contacted Primary care physician: Gil[facility] Course: The patient is a pleasant 89-year-old gentleman who underwent a heart catheterization and stenting of the LAD on August 24, 2024 He was seen and evaluated the following day and he was asymptomatic and hemodynamically stable with a site looking normal with no hematoma noted. The patient is going to be discharged home on dual antiplatelet therapy and I will follow-up with the patient next week in the office Plan - Discharge Summary Discharge Rx Participant: No New Discharge Prescriptions: New Ticagrelor [Brilinta] 90 mg PO BID #180 tab Continue Atorvastatin [Lipitor] 40 mg PO DAILY Aspirin [Adult Low Dose Aspirin EC] 81 mg PO DAILY Empagliflozin [Jardiance] 10 mg PO DAILY Discharge Medication List Aspirin [Adult Low Dose Aspirin EC] 81 mg PO DAILY 07/23/18 [History] Atorvastatin [Lipitor] 40 mg PO DAILY 07/23/18 [History] Empagliflozin [Jardiance] 10 mg PO DAILY 08/23/24 [History] Ticagrelor [Brilinta] 90 mg PO BID #180 tab 08/25/24 [Rx] Follow up Appointment(s)/Referral(s): Winston Gaona MD [STAFF PHYSICIAN] - 09/01/24 10:30 am Patient Instructions/Handouts: *Surgery [facility] - After Heart Catheterization - Limnology Teacher Instructions Discharge Disposition: HOME SELF-CARE
== END 2024-08-25 11:35 | disposition home or self-care (01) ==
LOC: CATHCVL 08:05 → 3SCARD 13:15 → CATHCVL 08-25 11:35
PROVIDERS: ATTEND Internal Medicine Interventional Cardiology
DX: I25.10 Atherosclerotic heart disease of native coronary artery without angina pectoris (principal); I25.82 Chronic total occlusion of coronary artery; I38 Endocarditis, valve unspecified; E78.5 Hyperlipidemia, unspecified; E11.9 Type 2 diabetes mellitus without complications; F17.210 Nicotine dependence, cigarettes, uncomplicated; Z82.49 Family history of ischemic heart disease and other diseases of the circulatory system; Z95.5 Presence of coronary angioplasty implant and graft; Z79.82 Long term (current) use of aspirin; Z79.02 Long term (current) use of antithrombotics/antiplatelets; Z79.899 Other long term (current) drug therapy
CPT/HCPCS: 92978; 93454; 92972; 80048; 85025; C1769 ×4; C9600; C1894; C1753; C1874; C1725 ×2; C1761; J2250; J2003; J1644; Q9967

== ENCOUNTER → 2024-11-07 | Outpatient (CLI) | payer MEDICARE ==
--- NOTE | 2024-11-07 15:15 | CT ---
EXAMINATION TYPE: CT brain wo con DATE OF EXAM: 11/07/2024 2:52 PM COMPARISON: 05/14/2018. CLINICAL INDICATION: Male, 89 years old with history of R41.9 SYMPTOMS AND SIGNS W COGNITIVE FUNCTION S AND, AMS, unstable gait TECHNIQUE: Brain: Axial CT images of the brain were obtained with coronal and sagittal reformats created and rev iewed. Contrast used: None. Oral contrast used: None. CT DLP: 1150 mGycm, Automated exposure control for dose reduction was used. FINDINGS: Brain: Extra-axial spaces: No abnormal extra-axial fluid collections. Ventricular system: Dilatation in proportion to cerebral atrophy. Cerebral parenchyma: Cerebral atrophy. No acute intraparenchymal hemorrhage or mass effect. The rojas -white junction is well differentiated. Scattered hypoattenuating areas are seen within the white mat ter. Mineralization of the basal ganglia bilaterally. Cerebellum: Unremarkable. Mass effect: No evidence of midline shift. Intracranial vasculature: Atherosclerotic calcifications of the intracranial vessels. Soft tissues: Normal. Calvarium/osseous structures: No depressed skull fracture. Paranasal sinuses and mastoid air cells: Mild scattered paranasal sinus disease. Visualized orbits: Bilateral aphakia IMPRESSION: 1. No acute intracranial process. 2. Nonspecific white matter changes, likely secondary to chronic small vessel ischemic disease. [facility], , 11/07/2024 3:12 PM
== END | disposition home or self-care (01) ==
LOC: RADCTMAIN 14:20
PROVIDERS: ATTEND Family Medicine
DX: R41.9 Unspecified symptoms and signs involving cognitive functions and awareness (principal); R90.82 White matter disease, unspecified
CPT/HCPCS: 70450